=== PATIENT | female | born 1945 | race Caucasian/White ===

== ENCOUNTER 2022-06-23 07:20 | Day surgery (SDC) | payer MEDICARE ==
[2022-06-23] MEDS ORDERED: fentaNYL 100 MCG/2 ML SDV ONE (07:43)
[2022-06-23] MEDS ORDERED: Propofol 200 MG/20 ML SDV ONE (07:43)
[2022-06-23] MEDS ORDERED: Midazolam 1 MG/ML 2 ML SDV ONE (07:43)
[2022-06-23] MEDS ORDERED: Lactated Ringers 1,000 ML IV SCH (08:00)
== END 2022-06-23 10:20 | disposition home or self-care (01) ==
LOC: JP.SDS 07:20
PROVIDERS: ATTEND Family Medicine
DX: Z12.11 Encounter for screening for malignant neoplasm of colon (principal); E11.22 Type 2 diabetes mellitus with diabetic chronic kidney disease; N18.9 Chronic kidney disease, unspecified; E78.00 Pure hypercholesterolemia, unspecified; Z90.710 Acquired absence of both cervix and uterus; Z79.899 Other long term (current) drug therapy; Z88.0 Allergy status to penicillin; Z88.2 Allergy status to sulfonamides; Z88.1 Allergy status to other antibiotic agents
CPT/HCPCS: G0121; J2250; J2704; J3010; J7120